=== PATIENT | male | born 1950 | race Caucasian/White ===

== ENCOUNTER → 2017-05-18 14:05 | Outpatient (CLI) | payer BC, SELFPAY ==
--- NOTE | 2017-05-18 14:11 | RAD_ITS ---
STUDY: X-RAY CHEST REASON FOR EXAM: Male, 66 years old. Cough. TECHNIQUE: PA and lateral views of the chest. COMPARISON: None. FINDINGS: The lungs are clear and expanded. There is no demonstrated pleural abnormality. Normal size heart. Normal mediastinum and george. Normal visualized pulmonary arteries. Normal visualized aortic arch and descending thoracic aorta. Normal visualized thoracic spine. Normal visualized ribs, clavicles, and shoulders. There is no demonstrated abnormality of the visualized soft tissue structures of the upper abdomen. RAD/Chest PA and Lateral IMPRESSION: No acute cardiopulmonary disease. Electronically Signed: Jesus Hicks DO at 16:11 EST Tel [phone], Service support ,
== END ==
PROVIDERS: Family Provider Internal Medicine; PCP Internal Medicine; Visit Provider Nurse Practitioner Gerontology
DX: R05 Cough (principal)
CPT/HCPCS: 71046

== ENCOUNTER → 2019-03-24 08:10 | Outpatient (CLI) | payer BC, SELFPAY ==
--- NOTE | 2019-03-24 08:12 | US_ITS ---
PROCEDURES: ULTRASOUND AORTA REASON FOR EXAM: Male, 68 years old. Family history of abdominal aortic aneurysm. TECHNIQUE: Ultrasound evaluation of the aorta was performed with real-time and static brandt-scale imaging. COMPARISON: None. FINDINGS: There is no elongation or tortuosity of the abdominal aorta. Aorta measures: Proximal 4.1 cm. Middle 1.8 cm. Distal 1.4 cm. Aorta measure transversely: Proximal 2.6 cm. Middle 1.7 cm. Distal 1.3 cm. Right iliac artery measures: 1.6 cm. Right iliac artery measure transversely: 0.9 cm. Left iliac artery measures: 1.3 cm. Left iliac artery measure transversely: 1.2 cm. There is no demonstrated aneurysm.. US/Aorta IMPRESSION: There is mild diffuse wall irregularity of the abdominal aorta consistent with atheromatous disease. There is mild aneurysmal dilatation of the proximal abdominal aorta measuring up to 4.1 x 2.6 cm in diameter. Electronically Signed: Nomi Guzman MD at 19:35 EST , Service support ,
== END ==
PROVIDERS: Family Provider Internal Medicine; PCP Internal Medicine; Referring Provider Internal Medicine; Visit Provider Internal Medicine
DX: Z82.49 Family history of ischemic heart disease and other diseases of the circulatory system (principal)
CPT/HCPCS: 76775

== ENCOUNTER → 2020-04-25 14:15 | Outpatient (CLI) | payer MEDICARE, BC, SELFPAY ==
--- NOTE | 2020-04-25 14:23 | MRI_ITS ---
STUDY: MRI LUMBAR SPINE WITHOUT CONTRAST REASON FOR EXAM: Male, 69 years old. radiculopathy, PAIN DOWN L LEG INTO FOOT TECHNIQUE: Standardized fat and water weighted pulse sequences were obtained in the sagittal and axial planes. COMPARISON: None FINDINGS: T12-L1: Disc desiccation with loss of disc height but no disc protrusion, spinal stenosis, or neural foraminal stenosis. Normal lumbar lordosis. There is no substantial scoliosis. Normal conus medullaris that terminates at the T12/L1. L1-2: Normal endplates. Normal disc height, hydration and morphology. Normal bilateral facet joints. Normal central canal and bilateral lateral recesses. Normal bilateral intervertebral neural foramina. L2-3: Disc desiccation but no disc protrusion, spinal stenosis, or neural foraminal stenosis. L3-4: Normal endplates. Normal disc height, hydration and morphology. Normal bilateral facet joints. Normal central canal and bilateral lateral recesses. Normal bilateral intervertebral neural foramina. L4-5: Moderate bilateral facet hypertrophy and ligament flavum hypertrophy. Mild broad disc protrusion produces mild spinal stenosis and mild bilateral neural foraminal stenosis. L5-S1: Mild bilateral facet hypertrophy and ligament flavum hypertrophy. 2 mm retrolisthesis of L5 on S1 with a moderate broad disc osteophyte complex which produces moderate spinal stenosis and moderate bilateral lateral recess stenosis with abutment of both S1 nerve root and mild bilateral neural foraminal stenosis. Normal visualized sacral ala. Normal visualized paraspinous soft tissue structures. MRI/Spine Lumbar (Routine) IMPRESSION: Multilevel degenerative changes, as described above. Electronically Signed: Adriel Damon MD at 16:45 EST Tel , Service support ,
== END ==
PROVIDERS: PCP Internal Medicine; Referring Provider Internal Medicine; Visit Provider Internal Medicine
DX: M54.5 Low back pain (principal)
CPT/HCPCS: 72148

== ENCOUNTER → 2021-01-18 10:01 | Outpatient (CLI) | payer MEDICARE, BC, SELFPAY ==
--- NOTE | 2021-01-18 10:07 | US_ITS ---
PROCEDURES: ULTRASOUND AORTA REASON FOR EXAM: Male, 70 years old. Aneurysm, abdominal AORTIC TECHNIQUE: Ultrasound evaluation of the aorta was performed with real-time and static brandt-scale imaging. COMPARISON: None. FINDINGS: There is atherosclerotic plaque formation of the abdominal aorta. Aorta measures: Proximal 2.8 cm. Middle 1.6 cm. Distal 1.6 cm. Aorta measure transversely: Proximal 3.9 cm. Middle 2.0 cm. Distal 1.9 cm. Right iliac artery measures: 1.2 cm. Right iliac artery measure transversely: 0.9 cm. Left iliac artery measures: 1.1 cm. Left iliac artery measure transversely: 1.1 cm. There is no demonstrated aneurysm.. US/US ABD AORTA SCREEN/AAA IMPRESSION: Peripheral atherosclerotic plaque, no demonstrated aneurysm or dissection Electronically Signed: Manuel Membreno MD at 11:20 EDT , Service support ,
== END ==
PROVIDERS: PCP Internal Medicine; Referring Provider Internal Medicine; Visit Provider Internal Medicine
DX: I71.4 Abdominal aortic aneurysm, without rupture (principal)
CPT/HCPCS: 76706

== ENCOUNTER → 2023-07-13 | Outpatient (CLI) | payer MEDICARE, BC, SELFPAY ==
--- NOTE | 2023-07-13 07:51 | CDU_ITS ---
Reason For Study: carotid occlusion and stenosis Rt. Velocities/BP Lt. Velocities/BP Prox CCA 108.0/15.7 cm/sec. Prox CCA 107.2/17.6 cm/sec. Mid CCA 93.8/14.6 cm/sec. Mid CCA 103.5/18.8 cm/sec. Dist CCA 98.1/15.7 cm/sec. Dist CCA 94.9/18.8 cm/sec. Prox ICA 65.2/13.5 cm/sec. Prox ICA 81.4/16.3 cm/sec. Mid ICA 77.3/23.4 cm/sec. Mid ICA 64.2/16.3 cm/sec. Dist ICA 76.2/23.4 cm/sec. Dist ICA 69.1/21.2 cm/sec. Rt. ICA/CCA = .8. Lt. ICA/CCA = .8. Prox ECA 69.6/5.8 cm/sec. Prox ECA 92.5/9.0 cm/sec. Rt. Vert. 46.5/12.4 cm/sec. Lt. Vert. 71.6/11.4 cm/sec. Right Extracranial There is intimal thickening but no significant atherosclerotic plaque noted in the right common carotid artery. There is heterogeneous, irregular atherosclerotic plaque noted in the right internal carotid artery. There is intimal thickening but no significant atherosclerotic plaque noted in the right external carotid artery. Antegrade flow is noted in the right vertebral artery. Left Extracranial There is intimal thickening but no significant atherosclerotic plaque noted in the left common carotid artery. There is heterogeneous, irregular atherosclerotic plaque noted in the left internal carotid artery. There is heterogeneous, irregular atherosclerotic plaque noted in the left external carotid artery. Antegrade flow is noted in the left vertebral artery. Procedure Carotid Duplex [id number]. This is a Carotid Duplex examination using B-mode, color flow and specral Doppler. The exam was diagnostic. Exam performed in department. VL/Carotid Duplex Ultrasound Interpretation Summary Mild (<50%) stenosis right extracranial internal carotid. Mild (<50%) stenosis left extracranial internal carotid. Flow within the vertebral arteries is antegrade bilaterally. Ordering Physician: Ijeoma Vincent Performed By: Titi Ames RVT
== END | disposition home or self-care (01) ==
LOC: CVS 07:47
PROVIDERS: PCP Internal Medicine; Referring Provider Internal Medicine; Visit Provider Internal Medicine
DX: I65.23 Occlusion and stenosis of bilateral carotid arteries (principal)
CPT/HCPCS: 93880

== ENCOUNTER → 2023-08-07 | Outpatient (CLI) | payer MEDICARE, BC, SELFPAY ==
--- NOTE | 2023-08-07 10:05 | RAD_ITS ---
STUDY: X-RAY CHEST REASON FOR EXAM: Male, 72 years old. cad TECHNIQUE: PA and lateral views of the chest. COMPARISON: None. FINDINGS: The lungs are clear and expanded. There is no demonstrated pleural abnormality. Normal size heart. Normal mediastinum and george. Normal visualized pulmonary arteries. Normal visualized aortic arch and descending thoracic aorta. Normal visualized thoracic spine. Normal visualized ribs, clavicles, and shoulders. There is no demonstrated abnormality of the visualized soft tissue structures of the upper abdomen. RAD/Chest PA and Lateral IMPRESSION: Normal x-ray examination of the chest. Electronically Signed: Adriel Damon MD at 17:32 EDT ,
[2023-08-07 10:54] LABS: Absolute Lymphocyte Count 1.51 X10^3/uL (0.83-4.51); Absolute Neutrophil Count 4.1 X10^3/uL (2.0-7.7); Basophil# 0.01 X10^3/uL; Basophil% 0.1 % (0-1); Eosinophil# 0.99 X10^3/uL; Eosinophils% 13.8 % (0-5); Hematocrit 47.5 % (40-54); Lymphocyte # 1.51 X10^3/ul (0.83-4.51); Lymphocyte % 21.1 % (19-41); Mean Corp Hgb Conc 33.7 g/dL (32-36); Mean Corpuscular Hgb 32.9 pg (27.0-32.0); Mean Corpuscular Volume 97.7 fL (80-94); Mean Platelet Vol. 10.7 fl (6.2-12.0); Monocyte# 0.53 X10^3/uL; Monocyte% 7.4 % (0-10); NRBC Flagged by Analyzer 0 % (0-5); Neutrophil # 4.09 X10^3/uL (2.7-7.7); Neutrophil % 57.3 % (47-70); Platelet Count 315 K/mm3 (150-450); RBC Distribution Width CV 12.6 % (11.6-14.6); RBC Distribution Width SD 45.2 fl (35.1-43.9); Red Blood Count 4.86 M/mm3 (4.6-6.2); White Blood Count 7.2 K/mm3 (4.4-11.0)
[2023-08-07 11:21] LABS: Anion Gap 4 (5-15); BUN 22 mg/dL (7-18); BUN/Creat Ratio 23.4 RATIO (10-20); Calcium,Total 9.5 mg/dL (8.5-10.1); Chloride 109 mmol/L (98-107); Creatinine, Serum 0.94 mg/dL (0.70-1.30); EST Glomerular Filtration Rate 84 mL/min (>60); Est Glom Filt Rate - Afr Amer 101 mL/min (>60); Glucose 196 mg/dL (74-106); Potassium 3.9 mmol/L (3.5-5.1); Sodium Level 140 mmol/L (136-145)
== END | disposition home or self-care (01) ==
PROVIDERS: PCP Internal Medicine; Referring Provider Internal Medicine Cardiovascular Disease; Visit Provider Internal Medicine Cardiovascular Disease
DX: I10 Essential (primary) hypertension (principal); I25.10 Atherosclerotic heart disease of native coronary artery without angina pectoris; K44.9 Diaphragmatic hernia without obstruction or gangrene
CPT/HCPCS: 36415; 71046; 80048; 85025

== ENCOUNTER 2023-08-24 07:03 | Day surgery (SDC) | payer MEDICARE, BC, SELFPAY ==
[2023-08-21 07:36] VITALS: BMI 29.2
--- NOTE | 2023-08-24 08:23 | CL.D_ITS ---
Patient Name: ARLETTE ACEVEDO Study Date: 08/24/2023 Performing: Joon Mcgarry MD Ht: 70 inches 177.8 cm : 1950 Wt: 203.99 lbs 92.53 kg Age: 72 Gender: male BSA: 2.1 PROCEDURE(S) PERFORMED DC01-(03751)LHC/COR/LV CLINICAL PROFILE AND INDICATIONS Indications: Suspected CAD Heart Failure: None Stress/Imaging Coronary Calcium Score: Yes Calcium Score: 2000Calcium Score: 2000 CAD Presentations: No Sxs, no angina. CONCLUSIONS Non obstructive coronary arteries Coronary calcification. RECOMMENDATIONS Medical therapy DESCRIPTION OF PROCEDURE The patient arrived to the procedure lab. The risks and benefits of the procedure as well as a full description of our services here and current unavailability of surgical backup were fully explained to the patient and/or their significant other prior to the catheterization. The Timeout was completed, verifying the correct patient and procedure. The patient's procedural site was prepped and draped in the usual fashion. Local anesthetic was given subcutaneously to right radial region with Lidocaine 2%. Using a modified Seldinger technique, arterial access was obtained via the right radial artery, a 6Fr sheath was inserted. Right Coronary Artery selective angiography was then performed in multiple views using a 5 Fr. 4.0 [place] catheter. Left Coronary Artery selective angiography was performed in multiple views using a 5 Fr. 4.0 [place] catheter. Left Ventriculography was performed in CARROLL projection using a 5 Fr. Pigtail catheter. LV to AO pullback pressures were then recorded.The arterial sheath was pulled and a TR Band was applied for hemostasis 10 ml of air CORONARY ANGIOGRAPHY DOMINANCE: Co- Dominant LEFT HEART ASSESSMENT Left Ventricular Ejection Fraction: by LV Gram 55 % Normal LV wall motion Normal Left Ventricular systolic function LEFT MAIN: Mild calcification, No significant disease noted LEFT ANTERIOR DESCENDING ARTERY: Mild calcification, Mild luminal irregularities less than 30% CIRCUMFLEX ARTERY: Moderate calcification noted. 2 small obtuse marginal branches and a third large obtuse marginal branch with mild stenosis present. The circumflex artery itself has luminal irregularities less than 30% stenosis. RIGHT CORONARY ARTERY: Mild calcification Mild luminal irregularities less than 30% COMPLICATIONS No Complications PROCEDURE MEDICATIONS Fentanyl 50 mcg IV Versed 1 mg IV Oxygen: 2 L/min via nasal cannula Aspirin (325mg) 1 Tabs PO @ 08/24/2023 07:29:51 Heparin given IA 08/24/2023 08:03:56 Verapamil 2.5mg, Ntg 100mcgs, 3000 units of Heparin given IA 08/24/2023 08:03:56 SUMMARY OF HEMODYNAMIC DATA Time AIR REST ECG 07:35:37 ECG 07:48:53 AO 109/46 (63) SA 08:05:32 AO 111/72 (90) 08:07:46 LV 127/14, 17 08:11:42 LV 130/16, 19 08:11:50 LV 119/31, 38 08:12:06 LV 126/16, 19 08:12:34 LVp 129/14, 18 08:12:39 AOp 107/-18 (8) 08:12:46 Signed By Joon Mcgarry MD On 08/24/2023 08:22:31 Joon Mcgarry MD
== END 2023-08-24 10:15 | disposition home or self-care (01) ==
LOC: CLSP 07:04
PROVIDERS: PCP Internal Medicine; Visit Provider Internal Medicine Cardiovascular Disease
DX: I25.10 Atherosclerotic heart disease of native coronary artery without angina pectoris (principal); Z79.4 Long term (current) use of insulin; E11.40 Type 2 diabetes mellitus with diabetic neuropathy, unspecified; I10 Essential (primary) hypertension; E78.5 Hyperlipidemia, unspecified; Z79.82 Long term (current) use of aspirin; Z79.899 Other long term (current) drug therapy; Z79.84 Long term (current) use of oral hypoglycemic drugs
CPT/HCPCS: 93458; 99152; 99153; J7040; C1769; C1894; Q9967

== ENCOUNTER → 2025-03-24 | Outpatient (CLI) | payer MEDICARE, BC, SELFPAY ==
[2025-03-24 08:08] LABS: Mucous, Urine 0 SEEN /hpf (<or=2+); Squamous Epithelial Cells - UA 0 SEEN /hpf (0-5)
[2025-03-24 10:16] LABS: Color, Urine Yellow (Yellow); Glucose, Dipstick 1000 mg/dl (Normal); Ketone-Dipstick Negative (Negative); Leukocyte Esterase-Dipstick Negative /ul (Negative); Nitrite-Dipstick Negative (Negative); Occult Blood-Urine 10 /ul (Negative); Protein-Dipstick 30 mg/dl (Negative); Specific Gravity, Urine 1.015 (1.002-1.030); Urine Bilirubin Dipstick Negative (Negative)
[2025-03-24 10:27] LABS: Red Blood Cells-Urine 0-5 SEEN /hpf (0-5)
[2025-03-24 10:41] LABS: Hematocrit 44.7 % (40-54); Hemoglobin 15.2 g/dL (13.0-16.5); Immature Granulocytes Count 0.020 X10^3/uL (0.0-0.0); Mean Corp Hgb Conc 34.0 g/dL (32-36); Mean Corpuscular Volume 96.1 fL (80-94); Mean Platelet Vol. 10.9 fl (6.2-12.0); NRBC Flagged by Analyzer 0 % (0-5); Platelet Count 300 K/mm3 (150-450); RBC Distribution Width CV 12.1 % (11.6-14.6); RBC Distribution Width SD 42.5 fl (35.1-43.9); Red Blood Count 4.65 M/mm3 (4.6-6.2); White Blood Count 8.2 K/mm3 (4.4-11.0)
[2025-03-24 10:46] LABS: Creatinine, Urine (random) 129.00 mg/dL (39.00-259.00); Microalbumin,Random Urine 54.3 mg/L (<20 mg/L)
[2025-03-24 11:09] LABS: AST(SGOT) 31 U/L (<=37); Alanine Aminotransfer ALT/SGPT 34 U/L (<=46); Albumin, Serum 4.1 g/dL (3.4-4.8); Alkaline Phosphatase 45 U/L (40-129); Anion Gap 12 (5-15); BUN 15 mg/dL (4-19); BUN/Creat Ratio 16.6 RATIO (10-20); Calcium,Total 9.3 mg/dL (7.6-11.0); Carbon Dioxide 24.2 mmol/L (21.0-32.0); Chloride 105 mmol/L (98-108); Cholesterol 88 mg/dL (<=200); Globulin 2.4 g/dL (2.2-4.2); Glucose 128 mg/dL (70-99); Low Density Lipoprotein Calc. 42 mg/dL; Potassium 3.5 mmol/L (3.3-5.1); Triglycerides 66 mg/dL; Very Low Density Lipoprotein 13 mg/dL (5-40); Vitamin D,25 Hydroxy 99.8 ng/mL (30-100); cholesterol:hdl ratio screen 2.80
== END | disposition home or self-care (01) ==
LOC: CIMLAB 08:06
PROVIDERS: PCP Internal Medicine; Referring Provider Internal Medicine; Visit Provider Internal Medicine
DX: E11.9 Type 2 diabetes mellitus without complications (principal); E78.5 Hyperlipidemia, unspecified; E55.9 Vitamin D deficiency, unspecified
CPT/HCPCS: 36415; 80053; 80061; 81001; 82043; 82306; 82570; 84443; 85025

== ENCOUNTER → 2025-03-30 | Outpatient (CLI) | payer MEDICARE, BC, SELFPAY ==
[2025-03-30 12:49] LABS: PSA,Total- Diagnostic 4.69 ng/mL (0.00-4.00)
== END | disposition home or self-care (01) ==
LOC: LAB 11:00
PROVIDERS: PCP Internal Medicine; Referring Provider Urology; Visit Provider Urology
DX: R97.20 Elevated prostate specific antigen [PSA] (principal)
CPT/HCPCS: 36415; 84153

== ENCOUNTER → 2025-04-10 | Outpatient (CLI) | payer MEDICARE, BC, SELFPAY ==
--- NOTE | 2025-04-10 11:01 | MRI_ITS ---
PROCEDURE: PELVIS W/WO CONTRAST, 04/10/2025 REASON FOR EXAM: ELEVATED PSA. Additional history: PSA 4.69 on 03/30/2025. TECHNIQUE: Multisequence multiplanar MRI pelvis was performed with and without IV contrast. IV Contrast: 18 mL Clariscan COMPARISON: None FINDINGS: Variable overall mild motion limitation. Few sequences mild/moderately motion degraded. Prostate size: 5.0 x 3.5 x 4.5 cm, estimated volume 41.0 mL. Per the above provided PSA, PSA density is 0.114 ng/mL. Transition zone: PI-RADS 2 findings. Additional lesions as below: *Lesion 1: Junction of the RIGHT anterior transition zone in the thin overlying RIGHT anterior peripheral zone possibly involving the overlying anterior fibromuscular stroma, centered at the level of the base but extending from base to midgland, 2.2 cm (series 12, image 16). *T2 score: 5. *DWI score: 5. *DCE: Positive. *Overall PI-RADS: PI-RADS 5. *Extracapsular extension:No gross extracapsular extension, however, there is capsular abutment well over 1 cm which increases the risk of occult early/microscopic extracapsular extension. Note that this includes a small area of immediate abutment of the bladder neck; early involvement cannot be entirely excluded. Peripheral Zone: As above. Otherwise otherwise, there are background changes of likely prostatitis (PI-RADS 2). Neurovascular bundles: Unremarkable. Seminal vesicles: Unremarkable. Bladder: Underdistended and suboptimally evaluated. Bladder wall thickening and trabeculation may suggest chronic bladder outlet obstruction. Mild intraluminal signal characteristics which may suggest the presence of hemorrhagic/proteinaceous debris. Lymph nodes: Unremarkable. Bones: No destructive or frankly suspicious bony lesions identified on nondedicated evaluation. Lumbar degenerative findings. Other: Minimally imaged at least trace RIGHT hydrocele.. MRI/Pelvis W/WO Contrast IMPRESSION: 1. 2.2 cm PI-RADS 5 lesion in the RIGHT anterior transition zone possibly invol ving the overlying RIGHT anterior peripheral zone and anterior fibromuscular stroma. 2. No gross extracapsular extension, however, there is capsular abutment well o loree 1 cm which increases the risk of occult early/microscopic extracapsular extension. Note that this includes a small area of immediate abutment of the bladder neck; early involvement cannot be entirely excluded. 3. Mild intraluminal signal characteristics within the bladder which may sugges t the presence of hemorrhagic/proteinaceous debris. Correlate with urinalysis. 4. No overt pelvic lymphadenopathy. 5. Additional description as above. Reading Location: [id number]
== END | disposition home or self-care (01) ==
LOC: OPMRI 10:56
PROVIDERS: PCP Internal Medicine; Referring Provider Urology; Visit Provider Urology
DX: R97.20 Elevated prostate specific antigen [PSA] (principal)
CPT/HCPCS: 72197; A9575; A4216